=== PATIENT | female | born 1980 | race Two or more races ===

== ENCOUNTER 2017-05-23 21:38 | Emergency (ER) | payer MEDICAID ==
[~2017-05-23] VITALS: Ht 167.6 cm; Wt 93.9 kg
[2017-05-23 22:12] LABS: Urine RBC None Seen /hpf (0 - 4)
[2017-05-23 22:17] LABS: Urine Bilirubin Negative (Negative); Urine Blood Negative /uL (Negative); Urine Color Yellow (Yellow); Urine Glucose Normal (Normal); Urine Ketone Negative (Negative); Urine Mucus FEW (None Seen); Urine Nitrite Negative (Negative); Urine Squamous Epithelial Cell FEW /hpf (<5); Urine Urobilinogen Normal (Negative); Urine pH 5.5 (5.0-8.0)
[2017-05-23 22:30] LABS: Basophils # (auto) 0.1 uL; Basophils % (auto) 0.9 % (0.0-2.0); CONDITION Y; Eosinophils # (auto) 0.6 uL; Eosinophils % (auto) 3.7 % (0.0-7.0); Hematocrit 40.5 % (36.0-46.0); Lymphocytes # (auto) 3.2 uL; Lymphocytes % (auto) 21.1 % (10.0-50.0); Mean Corpuscular Hemoglobin 28.6 pg (28.0-32.0); Mean Corpuscular Hgb Conc. 34.5 g/dL (32.0-36.0); Mean Corpuscular Volume 83.1 fL (80.0-100.0); Mean Platelet Volume 7.5 fL (7.4-10.4); Monocytes % (auto) 6.6 % (0.0-12.0); Neutrophils # (auto) 10.3 uL; Neutrophils % (auto) 67.7 % (37.0-80.0); Platelet Count (auto) 409 10^3/uL (140-450); Red Cell Distribution Width 13.4 % (11.6-16.0); White Blood Cell 15.3 10^3/uL (4.4-10.8)
[2017-05-23 23:03] LABS: Albumin 3.1 g/dL (3.4-5.0); Anion Gap 11 (5-15); Blood Urea Nitrogen 9 mg/dL (7-18); Calcium 8.3 mg/dL (8.5-10.1); Carbon Dioxide 22 mmol/L (21-32); Chloride 108 mmol/L (98-107); Glucose 118 mg/dL (74-106); Magnesium 2.1 mg/dL (1.6-2.6); Potassium 3.9 mmol/L (3.5-5.1); Sodium 141 mmol/L (136-145)
[2017-05-23 23:05] LABS: Aspartate Aminotransferase 12 U/L (15-37); BUN/Creatinine Ratio 16.1; GFR African American 159 mL/min; GFR Non-African American 132 mL/min
[2017-05-23 23:10] LABS: Alkaline Phosphatase 125 U/L (45-117); Bilirubin, Total 0.3 mg/dL (0.2-1.0); Total Protein 7.1 g/dL (6.4-8.2)
[2017-05-24 02:21] VITALS: BP 127/55
== END 2017-05-24 05:33 | disposition home or self-care (01) ==
LOC: ER 21:40
DX: R07.9 Chest pain, unspecified (principal); F17.210 Nicotine dependence, cigarettes, uncomplicated; F12.10 Cannabis abuse, uncomplicated; Z88.0 Allergy status to penicillin
CPT/HCPCS: 36415; 71010; 80053; 80307; 81001; 83735; 84443; 84484; 84702; 85025; 93005